=== PATIENT | male | born 1960 | race Caucasian/White ===

== ENCOUNTER 2016-07-11 10:16 | Day surgery (SDC) | payer BC ==
[2016-07-11] VITALS (19 sets, daily range): BP systolic 67–133; BP diastolic 47–92; PULSE 71–100; RESP 15–20; Ht 172.7 cm; Wt 77.0 kg
[~2016-07-11] VITALS: Ht 172.7 cm; Wt 77.0 kg
--- NOTE | 2016-07-11 11:03 | RADRPT ---
PROCEDURE: XR Chest. CLINICAL INDICATION: Preop with history of bladder stones. TECHNIQUE: Single frontal view of the chest was obtained. COMPARISON: None FINDINGS: The soft tissues are normal. There are degenerative osteophytes in the thoracic spine. The heart, cardiomediastinal silhouette and hilar structures are normal. The pulmonary vasculature is normal. There is a left-sided aorta. The lungs are clear. The costophrenic angles are normal. IMPRESSION: 1. Spondylosis of the thoracic spine with no evidence of active cardiopulmonary disease. RPTAT:AAJJ Physician Madhuri Date Time Electronically viewed and signed by Physician Madhuri on 07/11/2016 11:03 MAAME/
[2016-07-11 11:38] LABS: ADD SCAN DIFF NO
[2016-07-11 11:44] LABS: BASOPHILS % 0.6 % (0.0-2.0); EOSINOPHILS # 0.4 10^3/ul (0.0-0.5); EOSINOPHILS % 6.1 % (0.0-7.0); HEMATOCRIT 42.6 % (42.0-52.0); HEMOGLOBIN 13.8 g/dl (14.0-18.0); LYMPHOCYTES # 1.7 10^3/ul (0.8-2.9); LYMPHOCYTES % 26.7 % (15.0-51.0); MEAN CORPUSCULAR HEMOGLOBIN 28.5 pg (29.0-33.0); MEAN CORPUSCULAR HGB CONC 32.4 g/dl (32.0-37.0); MEAN PLATELET VOLUME 11.3 fl (7.4-10.4); MONOCYTE # 0.4 10^3/ul (0.3-0.9); MONOCYTES % 6.3 % (0.0-11.0); NEUTROPHIL # 3.9 10^3/ul (1.6-7.5); PLATELET COUNT 182 10^3/UL (140-415); RED BLOOD COUNT 4.84 10^6/ul (4.70-6.10); RED CELL DISTRIBUTION WIDTH 13.1 % (11.5-14.5); WHITE BLOOD COUNT 6.5 10^3/ul (4.8-10.8)
[2016-07-11] MEDS ORDERED: LOSA1TAB21 PO (11:55)
[2016-07-11] MEDS ORDERED: AMLO-145 PO (11:55)
[2016-07-11] MEDS ORDERED: TAMS0.4C2 PO (11:55)
[2016-07-11 11:57] LABS: ALBUMIN 3.9 g/dl (3.3-4.9); ALBUMIN/GLOBULIN RATIO 1.25; BILIRUBIN,INDIRECT 0.4 mg/dl (0-1.1); BILIRUBIN,TOTAL 0.4 mg/dl (0.2-1.3)
[2016-07-11 12:01] LABS: CALCIUM 9.3 mg/dl (8.4-10.2); CREATININE 0.91 mg/dl (0.61-1.24); INR 0.97; PARTIAL THROMBOPLASTIN TIME 26.5 Sec (25.0-35.0); POTASSIUM 3.9 mmol/L (3.5-5.1); PROTIME 12.9 Sec (12.2-14.2)
--- NOTE | 2016-07-11 12:04 | HP ---
DATE OF ADMISSION: 07/11/2016 HISTORY OF PRESENT ILLNESS: Selvin is a 55-year-old man with BPH and a symptomatic large bladder stone , who presents for endoscopic holmium laser lithotripsy of the bladder stone. A CT scan has reporte d that it is 2 cm in size. His creatinine is 1.02. He additionally has a slow urinary stream and u rge incontinence. PAST MEDICAL HISTORY: BPH, hypertension. PAST SURGICAL HISTORY: None. MEDICATIONS: 1. Amlodipine. 2. Losartan. 3. Flomax. ALLERGIES: PENICILLIN. PHYSICAL EXAMINATION: LUNGS: Breath sounds bilaterally. HEART: Regular rate and rhythm. ABDOMEN: Soft, nondistended, nontender. No palpable masses. FLANK: No CVA tenderness, no masses. GENITALIA: Normal shaft of penis, meatus, scrotum and testicles. IMPRESSION: Symptomatic bladder stone. PLAN: Endoscopic holmium laser lithotripsy of bladder stone and removal of fragments. How the proc edure is performed, potential complications, side effects, potential for staged intervention urinary retention, gross hematuria, perforation of bladder, damage to surrounding organs, infection and gabino n as well as xena and postoperative course including a Steward catheter have been explained at length with the patient. He would like to proceed. All questions answered. Dictated By: ARI ALEJANDRA MD EGR/NTS Conf#: [id number] DID#: [id number] CC: ARI ALEJANDRA MD;*EndCC*
[2016-07-11] MEDS ORDERED: PROPOFOL 40 ML ONE (12:11)
[2016-07-11] MEDS ORDERED: ONDANSETRON 4 MG INJ ONE (12:12)
[2016-07-11] MEDS ORDERED: KETOROLAC 30 MG INJ ONE (12:12)
[2016-07-11] MEDS ORDERED: DEXAMETHASONE 4 MG/ML 1 ML INJ ONE (12:12)
[2016-07-11] MEDS ORDERED: CIPROFLOXACIN 400MG/D5W 200 ML ONE (12:12)
[2016-07-11] MEDS ORDERED: METOCLOPRAMIDE 10 MG INJ ONE (12:12)
[2016-07-11] MEDS ORDERED: MIDAZOLAM 1 MG/ML 2 ML INJ ONE (12:12)
[2016-07-11] MEDS ORDERED: FENTAnyl 50 MCG/ML VIAL ONE (12:12)
[2016-07-11] MEDS ORDERED: EPHEDrine SULFATE 50 MG/5 ML SYG ONE (12:24)
[2016-07-11] MEDS ORDERED: HYDROmorphONE (0.2 MG/ML) 10ML SYG IV PRN ×3 (12:30)
[2016-07-11] MEDS ORDERED: METOCLOPRAMIDE 10 MG INJ IV PRN (12:30)
[2016-07-11] MEDS ORDERED: EPHEDrine SULFATE 50 MG/5 ML SYG IV PRN (12:30)
[2016-07-11] MEDS ORDERED: LEVOFLOXACIN 500MG/D5W (PMX) 100 ML IVPB ONE (12:30)
[2016-07-11] MEDS ORDERED: ONDANSETRON 4 MG INJ IV PRN (12:30)
[2016-07-11] MEDS ORDERED: morphine (1 MG/ML) 10ML SYRINGE IV PRN ×3 (12:30)
[2016-07-11] MEDS ORDERED: FENTAnyl 50 MCG/ML VIAL IV PRN ×3 (12:30)
[2016-07-11] MEDS ORDERED: DIPHENHYDRAMINE 50 MG INJ IV PRN (12:30)
[2016-07-11] MEDS ORDERED: hydrALAzine 20 MG INJ IV PRN (12:30)
[2016-07-11] MEDS ORDERED: LABETALOL HCL 20MG INJ IV PRN (12:30)
[2016-07-11] MEDS ORDERED: MEPERIDINE 25 MG INJ IV PRN (12:30)
[2016-07-11] MEDS ORDERED: MEPERIDINE 100 MG INJ ONE (12:47)
--- NOTE | 2016-07-11 13:01 | PDOCDIS ---
Discharge Instructions CONDITION Patient Condition: Good HOME CARE INSTRUCTIONS: Diet Instructions: Regular ACTIVITY: Activity Restrictions: Slowly Increase Activity Bathing Restrictions: Shower FOLLOW UP/APPOINTMENTS Appointments Thursday OTHER ORDERS: Other Orders: Steward to leg bag SCHOOL/WORK RELEASE May return to School/Work on: July 21, 2016 ARI ALEJANDRA July 11, 2016 13:01
--- NOTE | 2016-07-11 13:27 | OPR ---
DATE OF OPERATION: CHIEF COMPLAINT: Selvin is a 55-year-old male with BPH and a 3-cm bladder stone, who presents for endo scopic holmium laser lithotripsy. PREOPERATIVE DIAGNOSIS: Bladder stone. POSTOPERATIVE DIAGNOSIS: Bladder stone and BPH. OPERATION PERFORMED: Endoscopic holmium laser lithotripsy, 3-cm bladder stone. SURGEON: Dr. Ríos. ANESTHESIA: General. COMPLICATIONS: None. FINDINGS: 3-cm bladder stone. DESCRIPTION OF PROCEDURE: In the operating room table in supine lithotomy position the patient was prepped and draped in the usual fashion after anesthesia was induced. A timeout was undertaken. Ap propriate pressure points were padded and he received preoperative antibiotic therapy. The continuo us resectoscope was gently placed into the bladder under direct vision, which demonstrated trilobar enlargement of the prostatic lobes. The median lobe was noted to protrude into the bladder. The bl adder was inspected in a systematic fashion. A small bladder diverticulum was noted as well as a 3- cm spiculated bladder stone which was subsequently broken up with a 1000 micron holmium fiber under direct vision. The fragments were then subsequently removed with an [facility] evacuator. This was repe titively performed until all fragments were removed. No bleeding could be appreciated. No perforat ion of the bladder was noted. A 2-way Steward catheter was inserted into the bladder and left to grav ity drainage. He will follow up in the office on Thursday for a trial of void. He tolerated the proc edure well. The patient has Tylenol with codeine at home. No other prescriptions were written. Dictated By: ARI FLAHERTY/RADHA Conf#: [id number] DID#: [id number]
--- NOTE | 2016-07-11 18:20 | RADRPT ---
Vent Rate: 82 bpm RR Interval: 0 msec CO Interval: 174 msec QRS Duration: 88 msec QT Interval: 364 msec QTC Interval: 425 msec P-R-T [place]: 48 - 49 - 44 degrees Normal sinus rhythm Normal ECG Electronically Signed By: Kunal Burr [id number]
== END 2016-07-11 14:55 | disposition home or self-care (01) ==
LOC: SDS 10:16
PROVIDERS: ATTEND Urology
DX: N21.0 Calculus in bladder (principal); N40.0 Benign prostatic hyperplasia without lower urinary tract symptoms; I10 Essential (primary) hypertension
CPT/HCPCS: 50961; 71010; 80053; 85025; 85610; 85651; 85730; 88300; 93005; J0744; J1100; J1885; J1956; J2175; J2250; J2405; J2765; J3010; Z7512; Z7610

== ENCOUNTER 2018-05-26 07:22 | Observation (INO) | payer OTHER, BC ==
[2018-05-24 16:46] VITALS: BMI 27.5
[~2018-05-26] VITALS: Ht 175.3 cm; Wt 79.4 kg
[2018-05-26] VITALS (23 sets, daily range): BP systolic 89–129; BP diastolic 53–86; PULSE 81–104; RESP 14–20; Ht 175.3 cm; Wt 79.4 kg
[~2018-05-26 07:22] MED LIST: AMLO-145 PO; CIPRO 400 MG/200 ML D5W IVPB ONE; CIPROFLOXACIN 400 MG in D5W 200 ML IVPB SCH; LOSA1TAB28 PO; TAMS0.4C2 PO
[2018-05-26] MEDS ORDERED: LOSA1TAB28 PO (07:59)
[2018-05-26] MEDS ORDERED: TAMS0.4C2 PO (08:00)
--- NOTE | 2018-05-26 09:06 | HPN ---
Date/Time of Note Date/Time of Note DATE: 05/26/18 TIME: 09:06 Interval H&P Admission Note Pt. seen H&P reviewed: No system changes ARI ALEJANDRA May 26, 2018 09:06
--- NOTE | 2018-05-26 09:37 | PREAC ---
Date/Time of Note Date/Time of Note DATE: 05/26/18 TIME: 09:36 Anesthesia Eval and Record Evaluation Time Pre-Procedure Interview DATE: 05/26/18 TIME: 09:36 Age 57 Sex male NPO: 8 hrs Preoperative diagnosis BPH Planned procedure TURP Past Medical History Past Medical History: Includes Cardio: HTN Pulm: Sleep Apnea GI: Obesity Surgery & Anesthesia Issues No known issue Meds Anticoagulation: No Beta Robyn within 24 hr: No Reason Beta Robyn not given: Pt. not on B-Robyn Reported Medications Tamsulosin Hcl* (Tamsulosin Hcl*) 0.4 Mg Cap.er.24h, 0.4 MG PO HS, CAP 05/26/18 Losartan-Hydrochlorothiazide (Losartan-HCTZ) 100-12.5 Mg Tab, 1 TAB PO DAILY, TAB 05/26/18 Discontinued Reported Medications Tamsulosin Hcl* (Tamsulosin Hcl*) 0.4 Mg Cap.er.24h, 0.4 MG PO HS, CAP 07/11/16 Amlodipine Besylate* (Amlodipine Besylate*) 5 Mg Tablet, 5 MG PO DAILY, #30 TAB 07/11/16 Losartan-Hydrochlorothiazide (Losartan-HCTZ) 100-12.5 Mg Tab, 1 TAB PO DAILY, TAB 07/11/16 Current Medications Ciprofloxacin/ Dextrose 200 ml @ 200 mls/hr PREOP IVPB ; Start 05/26/18 at 06:00; Stop 05/26/18 at 19:00 Meds reviewed: Yes Allergies Coded Allergies: Penicillins (Verified Allergy, Unknown, 05/26/18) Allergies Reviewed: Yes Labs/Studies Labs Reviewed: Reviewed by anesthesiologist test: N/A Studies: ECG Pre-procedure Exam Last vitals Vital Signs Date Temp Pulse Resp B/P (MAP) Pulse Ox O2 O2 Flow FiO2 Time Delivery Rate 05/26/18 98.0 99 16 129/86 96 08:38 (100) Airway: Adequate mouth opening, Adequate thyromental dist Mallampati: Mallampati II Teeth: Normal Lung: Normal Heart: Normal ASA Physical Status ASA physical status: 2 Emergency: None Planned Anesthetic General/MAC: ETT Planned Pain Management Parenteral pain med Pre-operative Attestations Prior to commencing anesthesia and surgery, the patient was re-evaluated, there was verification of: *The patient's identity *The results of appropriate recent lab work and preoperative vital signs *The above evaluation not changing prior to induction *Anesthetic plan, risk benefits, alternative and complications discussed with patient/family; questions answered; patient/family understands, accepts and wishes to proceed. ADRIENNE RAMOS MD May 26, 2018 09:37
[2018-05-26] MEDS ORDERED: CEFAZOLIN 1 GM INJ ONE (09:39)
[2018-05-26] MEDS ORDERED: MIDAZOLAM 1 MG/ML 2 ML INJ ONE (09:39)
[2018-05-26] MEDS ORDERED: PROPOFOL 20 ML ONE (09:39)
[2018-05-26] MEDS ORDERED: ROCURONIUM 50 MG INJ ONE (09:39)
[2018-05-26] MEDS ORDERED: FENTAnyl 50 MCG/ML VIAL ONE (09:39)
[2018-05-26] MEDS ORDERED: hydrALAzine 20 MG INJ ONE (09:49)
[2018-05-26] MEDS ORDERED: KETOROLAC 30 MG INJ ONE (10:17)
[2018-05-26] MEDS ORDERED: DEXAMETHASONE 4 MG/ML 5 ML INJ ONE (10:17)
[2018-05-26] MEDS ORDERED: ONDANSETRON 4 MG INJ ONE (10:17)
[2018-05-26] MEDS ORDERED: METOCLOPRAMIDE 10 MG INJ ONE (10:17)
[2018-05-26] MEDS ORDERED: SUGAMMADEX SODIUM 200 MG/2 ML VIAL IV ONE (10:18)
[2018-05-26] MEDS ORDERED: FAMOTIDINE 20 MG INJ ONE (10:18)
[2018-05-26] MEDS ORDERED: PHENYLephrine (100 MCG/ML) 10ML SYG ONE (10:21)
[2018-05-26] MEDS ORDERED: hydrALAzine 20 MG INJ IV PRN (10:30)
[2018-05-26] MEDS ORDERED: BELLADONNA ALK/OPIUM SUPP PR ONE (10:30)
[2018-05-26] MEDS ORDERED: METOCLOPRAMIDE 10 MG INJ IV PRN (10:30)
[2018-05-26] MEDS ORDERED: OXYCODONE/ACETAMINOPHEN (5/325) TAB PO PRN (10:30)
[2018-05-26] MEDS ORDERED: EPHEDrine SULFATE 50 MG/5 ML SYG IV PRN (10:30)
[2018-05-26] MEDS ORDERED: MEPERIDINE 25 MG INJ IV PRN (10:30)
[2018-05-26] MEDS ORDERED: LABETALOL HCL 20MG INJ IV PRN (10:30)
[2018-05-26] MEDS ORDERED: DIPHENHYDRAMINE 50 MG INJ IV PRN (10:30)
[2018-05-26] MEDS ORDERED: FENTAnyl 50 MCG/ML VIAL IV PRN ×3 (10:30)
[2018-05-26] MEDS ORDERED: ONDANSETRON 4 MG INJ IV PRN (10:30)
[2018-05-26] MEDS ORDERED: HYDROmorphONE 1 MG/5 ML IV SYRINGE IV PRN ×3 (10:30)
--- NOTE | 2018-05-26 10:35 | PAC ---
Date/Time of Note Date/Time of Note DATE: 05/26/18 TIME: 10:35 Post-Anesthesia Notes Post-Anesthesia Note Last documented vital signs Vital Signs Date Temp Pulse Resp B/P (MAP) Pulse Ox O2 O2 Flow FiO2 Time Delivery Rate 05/26/18 98.0 99 16 129/86 96 10:38 (100) Activity: WNL Respiratory function: WNL Cardiovascular function: WNL Mental status: Baseline Pain reasonably controlled: Yes Hydration appropriate: Yes Nausea/Vomiting absent: Yes ADRIENNE RAMOS MD May 26, 2018 10:35
[2018-05-26] MEDS ORDERED: MAGNESIUM HYDROXIDE 30ML CUP PO PRN (11:00)
[2018-05-26] MEDS ORDERED: BELLADONNA ALK/OPIUM SUPP PR PRN (11:00)
[2018-05-26] MEDS ORDERED: morphine 2 MG INJ IV PRN (11:00)
[2018-05-26] MEDS ORDERED: HYDROCODONE/APAP (5/325) TAB PO PRN (11:00)
[2018-05-26] MEDS: LOSARTAN 50 MG TAB PO SCH (13:00)
--- NOTE | 2018-05-26 14:35 | OPR ---
DATE OF OPERATION: 05/26/2018 PREOPERATIVE DIAGNOSIS: Symptomatic bladder outlet obstruction. POSTOPERATIVE DIAGNOSIS: Symptomatic bladder outlet obstruction. OPERATION PERFORMED: Cystoscopy, transurethral resection of the prostate. ANESTHESIA: General. COMPLICATIONS: None. ESTIMATED BLOOD LOSS: Negligible. SPECIMEN: Prostate chips. DRAINS: 22-Spanish 3-way Steward catheter. PROCEDURE: The patient was brought into the operating room and placed on the operating room table in supine lithotomy position. He was prepped and draped in the usual fashion after anesthesia was bandar candy. A timeout was undertaken. Appropriate pressure points were padded. He received preoperative a ntibiotic therapy. Rigid cystoscopy demonstrated normal anterior urethra. The verumontanum was iden tified and preserved throughout the entire case and obstructing prostate was appreciated. Primarily his point of obstruction is a median lobe that protrudes into the bladder causing a ball valve obstru ction. Additionally, enlargement of the lateral lobes was appreciated. The bladder was inspected in a systematic fashion. Bilateral ureteral orifices identified and preserved throughout the entire ca se, marked trabeculation of the bladder could be appreciated. A transurethral resection of the media n lobe was first undertaken within the intraluminal portion of the bladder, extending into the mid pr ostatic fossa from the 5 o'clock to 7 o'clock position. This was taken down so as to remove the intr aluminal portion of the obstructing prostate and extending into the prostatic fossa down to the surgi prasad capsule. Next, resection of the obstructing lateral lobes was undertaken from the 1 o'clock to 5 o'clock position and the 7 to 11 o'clock position from the level of the bladder neck to the mid pros tatic fossa and the remaining anterior portion was then removed down to the surgical capsule. Next t he apical tissue was removed with preservation of the verumontanum. Pinpoint hemostasis was obtained . The chips were removed. An open prostatic fossa was noted. The scope was removed and a 3-way Fol ey catheter was inserted. A 22-Spanish 3-way Steward catheter was placed without any difficulty. Slow continuous bladder irrigation was started and the efflux was noted to be clear. He was transferred t o recovery room in stable condition and suppository was placed. He will stay overnight for continuou s bladder irrigation and to be reevaluated in the morning time for hopeful discharge. There were no noted complications. Dictated By: ARI FLAHERTY/RADHA Conf#: [id number] DID#: [id number] CC: ARI ALEJANDRA MD;*End*
[2018-05-26] MEDS: DEXTROSE 5%-0.45% NACL 1,000 ML IV SCH ×2 (15:22→22:28)
[2018-05-26] MEDS: CIPROFLOXACIN 500 MG TAB PO SCH (18:27)
[2018-05-26] MEDS: DOCUSATE SODIUM 100 MG CAP PO SCH (20:20)
[2018-05-26] MEDS ORDERED: TAMSULOSIN (SR) 0.4 MG CAP PO SCH (21:00)
[2018-05-27 00:27] VITALS: BP 118/62; PULSE 88; RESP 20
[2018-05-27] MEDS ORDERED: ZOLPIDEM 5 MG TAB PO ONE (01:00)
[2018-05-27] MEDS: CIPROFLOXACIN 500 MG TAB PO SCH (06:03)
[2018-05-27 07:38] VITALS: BP 117/73; PULSE 99; RESP 18
[2018-05-27] MEDS: DOCUSATE SODIUM 100 MG CAP PO SCH (09:09)
[2018-05-27] MEDS: LOSARTAN 50 MG TAB PO SCH (09:10)
--- NOTE | 2018-05-27 12:16 | PDOCDIS ---
Discharge Instructions DIAGNOSIS Discharge Diagnosis Bladder outlet obstruction CONDITION Ruiz Patient Condition: [id number] Good HOME CARE INSTRUCTIONS: Ruiz Diet Instructions: Fidel Reduced Calorie ACTIVITY: Ruiz Activity Restrictions: [id number] Slowly Increase Activity [id number] Bathing Restrictions: [id number] Shower FOLLOW UP/APPOINTMENTS Follow-up Plan Call office for date and time for removal of Steward REFERRALS Ruiz Referring Provider: ARI Muhammad OTHER ORDERS: Other Orders: Steward t o leg an gravity bag encourage hydration no sexual activity no lifting more than 5 lbs keep stool soft ARI ALEJANDRA May 27, 2018 12:16
[2018-05-27 15:01] VITALS: BP 121/69; PULSE 79; RESP 18
--- NOTE | 2018-05-27 16:46 | DS ---
DATE OF ADMISSION: 05/26/2018 DATE OF DISCHARGE: 05/27/2018 HISTORY OF PRESENT ILLNESS: Ali is status post TURP on postop day #1. Surgery was uneventful. The patient was monitored overnight on continuous bladder irrigation. On the morning of postop day #1, t he patient is doing well with slow continuous bladder irrigation, was crystal clear and thus it was d iscontinued and remained to be clear. He is eating solid foods without any noted difficulty. PHYSICAL EXAMINATION: VITAL SIGNS: Blood pressure is 117/73, temperature 98.4, heart rate 99, respirations 18. ABDOMEN: Soft, nondistended, nontender, no palpable masses. Flank: No CVA tenderness, no masses. GENITALIA: Normal shaft of the penis, meatus scrotum, testicles and epididymis. Steward catheter is d raining clear yellow urine. IMPRESSION: Doing well status post TURP. PLAN: Discharged to home on tamsulosin 0.4 mg after dinner and continuation of losartan and hydrochl orothiazide 100/12.5 p.o. daily. Follow up in office next week for a trial of void. The patient was given prescription for [place] 5/325 one tab p.o. q.6 hours p.r.n., dispensed #30 and Colace 100 mg p. o. t.i.d. x15 days, 1 refill. Postoperative routine instructions were reviewed at length including b ut not limited to not lifting of more than 5 pounds over the next 4 to 6 weeks' time, light activity, encourage hydration, do not pull catheter, no sexual activity and no straining to have bowel movemen ts and keep stools soft. Dictated By: ARI FLAHERTY/NTS Conf#: [id number] DID#: [id number]
== END 2018-05-27 17:20 | disposition home or self-care (01) ==
LOC: SDS 07:22 → REC 10:47 → MS1 11:43
PROVIDERS: ADMIT Urology; ATTEND Urology
DX: C61 Malignant neoplasm of prostate (principal); I10 Essential (primary) hypertension
CPT/HCPCS: 52630; 88305; G0378; J0360; J0744; J1100; J1885; J2250; J2405; J2765; J3010; J7042; J0690; J2370